=== PATIENT | male | born 1990 | race Caucasian/White ===

== ENCOUNTER 2016-05-19 08:29 | Emergency (ER) | payer OTHER ==
[2016-05-19] MEDS ORDERED: Ibuprofen 600 MG TAB ONE (09:19)
[2016-05-19] MEDS ORDERED: DILAUDID 1 MG/ML AMP ONE (09:20)
== END 2016-05-19 11:21 | disposition home or self-care (01) ==
LOC: ER 08:29
DX: J01.00 Acute maxillary sinusitis, unspecified (principal); J01.20 Acute ethmoidal sinusitis, unspecified; J01.10 Acute frontal sinusitis, unspecified; J01.30 Acute sphenoidal sinusitis, unspecified; Z79.899 Other long term (current) drug therapy; F32.9 Major depressive disorder, single episode, unspecified; M79.7 Fibromyalgia; F42.9 Obsessive-compulsive disorder, unspecified; F84.5 Asperger's syndrome
CPT/HCPCS: 36415; 70450; 70486; 85025; 96372; 99284; J1170